=== PATIENT | male | born 1930 | race Hispanic/Latino ===

== ENCOUNTER 2016-07-21 12:35 | Emergency (ER) | payer MEDICARE ==
[2016-07-21 12:41] VITALS: BMI 19.8
[2016-07-21 12:46] VITALS: TEMP 98
--- NOTE | 2016-07-21 13:12 | RAD ---
HISTORY: cough COMPARISON: 09/08/2014 FINDINGS: LUNGS: No active pulmonary disease. PLEURA: No significant pleural effusion identified, no pneumothorax apparent. CARDIOVASCULAR: Normal. OSSEOUS STRUCTURES: No significant abnormalities. VISUALIZED UPPER ABDOMEN: Normal. OTHER FINDINGS: None. IMPRESSION: No active disease.
[2016-07-21 13:22] LABS: ADD MANUAL DIFF? NO
--- NOTE | 2016-07-21 13:25 | ED PDOC ---
Arrival/HPI - General Chief Complaint: Chest Pain Time Seen by Provider: 07/21/16 12:43 Historian: Patient - History of Present Illness Narrative History of Present Illness (Text): 07/21/16 13:15 A 86 year old male presents to the emergency department complaining of intermittent non-exertional left sided chest discomfort for the past 2 days. Patient currently denies any pain. He denies any relieving or exacerbating factors. Patient denies any fever, nausea, vomiting, diarrhea, abdominal pain, urinary symptoms, shortness of breath or any other complaints. PMD: Dr. Carpenter Time/Duration: Other (2 days) Symptom Course: Intermittent Quality: Other Context: Other Past Medical History - Provider Review Nursing Documentation Reviewed: Yes - Infectious Disease Hx of Infectious Diseases: None - Tetanus Immunization Tetanus Immunization: Unknown - Cardiac Hx Cardiac Disorders: Yes Hx Hypertension: Yes Hx Pacemaker: No Hx Peripheral Vascular Disease: Yes (right lower ext ulcer) - Pulmonary Hx Respiratory Disorders: No - Neurological Hx Neurological Disorder: No Hx Paralysis: No - HEENT Hx HEENT Disorder: Yes Hx Cataracts: Yes (BILATERAL SX,ALSO LASER SURGERY AND MONTLY EYE INJECTIONS) Hx Macular Degeneration: Yes - Renal Hx Renal Disorder: Yes Hx Kidney Stones: Yes - Endocrine/Metabolic Hx Endocrine Disorders: Yes Other/Comment: pt had thyroid sx not sure if he had total or partial, currently taking no meds - Hematological/Oncological Hx Blood Disorders: No Hx Blood Transfusions: No Hx Blood Transfusion Reaction: No - Integumentary Hx Dermatological Disorder: Yes - Musculoskeletal/Rheumatological Hx Musculoskeletal Disorders: No - Gastrointestinal Hx Gastrointestinal Disorders: Yes Hx Gastroesophageal Reflux: Yes - Genitourinary/Gynecological Hx Genitourinary Disorders: Yes Hx Prostate Problems: Yes (enlarged) - Psychiatric Hx Psychophysiologic Disorder: No Hx Emotional Abuse: No Hx Physical Abuse: No Hx Substance Use: No - Surgical History Hx Cardiac Catheterization: Yes - Anesthesia Hx Anesthesia Reactions: No Hx Malignant Hyperthermia: No - Suicidal Assessment Feels Threatened In Home Enviroment: No Family/Social History - Physician Review Nursing Documentation Reviewed: Yes Family/Social History: No Known Family HX Smoking Status: Never Smoked Hx Alcohol Use: No Hx Substance Use: No Hx Substance Use Treatment: No Allergies/Home Meds Allergies/Adverse Reactions: Allergies No Known Allergies Allergy (Verified 07/21/16 12:41) Home Medications: Home Meds Medication Instructions Recorded Confirmed Atorvastatin Calcium [Lipitor] 10 mg PO DAILY 09/08/14 07/21/16 Pantoprazole Sodium [Protonix] 40 mg PO DAILY 09/08/14 07/21/16 amLODIPine [Norvasc] 5 mg PO DAILY 09/08/14 07/21/16 Aspirin [Aspirin EC] 81 mg PO DAILY 09/09/14 07/21/16 Finasteride [Proscar] 5 mg PO DAILY 07/21/16 07/21/16 Lisinopril [Zestril] 20 mg PO DAILY 07/21/16 07/21/16 Lutein [Natural Lutein] 0 mg PO BID 07/21/16 07/21/16 Physical Exam - Physical Exam Narrative Physical Exam (Text): - Review of Systems Constitutional: Normal. absent: Fatigue, Weight Change, Fevers Eyes: Normal ENT: Normal Respiratory: Normal absent: SOB, Cough, Sputum Cardiovascular: (+) Left sided chest discomfort absent: Palpitations, Syncope Gastrointestinal: Normal absent: Abdominal pain, Diarrhea, Nausea, Vomiting Genitourinary: Normal. absent: Dysuria, Frequency, Hematuria Musculoskeletal: Normal. absent: Arthralgias, Back Pain, Neck Pain Skin: Normal Neurological: Normal absent: Focal Weakness Endocrine: Normal Hemo/Lymphatic: Normal Psychiatric: Normal - Physical exam Patient appears age appropriate, speaking full sentences without difficulty - Systems Exam Head: Present: Atraumatic, Normocephalic Pupils: Present: PERRL Extraocular Muscles: Present: EOMI Conjunctiva: Present: Normal Mouth: Present: Moist Mucous Membranes Neck: Present: Normal Range of Motion. No: MIDLINE TENDERNESS, Paraspinal Tenderness Respiratory/Chest: Present: Clear to Auscultation, Good Air Exchange. No: Respiratory Distress, Accessory Muscle Use, Tachypneic Cardiovascular: Present: Regular Rate and Rhythm, Normal S1, S2, Peripheral Pulses Present. No: Murmurs Abdomen: Present: Normal Bowel Sounds, No: Tenderness, Peritoneal Signs, Rebound, Guarding, Distention Back: Present: Normal Inspection. No: Midline Tenderness, Paraspinal Tenderness Upper Extremity: Present: Normal Inspection. No: Cyanosis, Edema Lower Extremity: Present: Normal Inspection. No: Edema Neurological: Present: GCS=15, Speech Normal, cranial nerves II through XII fully intact with no cerebellar abnormality, neuro-sensory fully intact. No focal neurological deficits. Skin: Present: Warm, Dry, Normal Color. No: Rashes Lymphatic: Present: OX3, NI, NC Psychiatric: Present: Alert, Oriented x 3, Normal Insight, Normal Concentration Vital Signs Reviewed: Yes Vital Signs Temp Pulse Resp BP Pulse Ox 07/21/16 13:28 57 L 14 142/80 98 07/21/16 12:45 98.0 F 63 18 170/63 H 100 Temperature: Afebrile Blood Pressure: Hypertensive Pulse: Regular Respiratory Rate: Normal Appearance: Positive for: Well-Appearing, Non-Toxic, Comfortable Pain Distress: None Mental Status: Positive for: Alert and Oriented X 3 Medical Decision Making ED Course and Treatment: 07/21/16 13:15 Impression: A 86 year old male with left sided chest discomfort. Patient currently denies pain. Physical exam unremarkable. Patient seen outpatient by Dr. Carpenter, and sent into the emergency department for labs and imaging. Plan: -- Chest xray -- EKG -- Labs -- Aspirin and Nitroglycerin -- Reassess and disposition Progress Notes: EKG shows NSR at 60 BPM with RBBB, no ST-segment elevations, with no changes from prior on 09/08/14. Interpreted by me. Report Date: 07/21/16 13:10 Procedure: Chest xray Dicated By: Solomon Dorado Impression: No active disease 07/21/16 15:08 On reevaluation, patient denies any chest pain or discomfort. States that he feels well and would like to be discharged home. Case discussed with Dr. 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 Pt states he understands to return to the ER right away for new or worsening symptoms or for inability to f/u with PMD or specialist as instructed. Patient states that he fully agrees with and understands discharge instructions. States that he agrees with the plan and disposition. Verbalized and repeated discharge instructions and plan. I have given the patient opportunity to ask any additional questions. - Lab Interpretations Lab Results: 07/21/16 12:50 07/21/16 12:50 Lab Results 07/21/16 12:50: WBC 8.7, RBC 3.48 L, Hgb 11.7 L, Hct 34.7 L, MCV 99.7, MCH 33.6 , MCHC 33.7, RDW 17.0 H, Plt Count 415, MPV 10.5, Gran % 69.9 H, Lymph % (Auto) 15.8 L, [place] % (Auto) 13.0 H, Eos % (Auto) 0.2 L, Baso % (Auto) 1.1, Gran # 6.08 , Lymph # 1.4, [place] # 1.1 H, Eos # 0.0, Baso # 0.10, PT 10.7, INR 0.99, APTT 27.7, Sodium 141, Potassium 3.9, Chloride 100, Carbon Dioxide 30, Anion Gap 15, BUN 16, Creatinine 0.6, Est GFR ( Amer) > 60, Est GFR (Non-Af Amer) > 60 , Random Glucose 105, Calcium 9.6, Total Bilirubin 1.3, AST 41, ALT 44, Alkaline Phosphatase 69, Lactate Dehydrogenase 470, Total Creatine Kinase 83, Troponin I < 0.01, Total Protein 7.8, Albumin 4.6, Globulin 3.2, Albumin/ Globulin Ratio 1.4 I have reviewed the lab results: Yes - RAD Interpretation Radiology Orders: 07/21/16 12:44 CHEST PORTABLE [RAD] Stat - Medication Orders Current Medication Orders: Discontinued Medications Aspirin (Aspirin Chewable) 324 mg PO STAT STA Stop: 07/21/16 12:44 Last Admin: 07/21/16 12:57 Dose: 324 MG Nitroglycerin (Nitrostat Sl Tab) 0.3 mg SL STAT STA Stop: 07/21/16 12:45 Last Admin: 07/21/16 13:07 Dose: 0.3 MG - Scribe Statement The provider has reviewed the documentation as recorded by the Yousif Fagan Provider Scribe Attestation: All medical record entries made by the Scribe were at my direction and personally dictated by me. I have reviewed the chart and agree that the record accurately reflects my personal performance of the history, physical exam, medical decision making, and the department course for this patient. I have also personally directed, reviewed, and agree with the discharge instructions and disposition. Disposition/Present on Arrival - Present on Arrival Any Indicators Present on Arrival: No History of DVT/PE: No History of Uncontrolled Diabetes: No Urinary Catheter: No History of Decub. Ulcer: No History Surgical Site Infection Following: None - Disposition Have Diagnosis and Disposition been Completed?: Yes Diagnosis: Chest pain Disposition: HOME/ ROUTINE Disposition Time: 15:10 Patient Plan: Discharge Condition: GOOD Discharge Instructions (ExitCare): Chest Pain (ED) Additional Instructions: PLEASE RETURN TO THE EMERGENCY DEPARTMENT FOR NEW OR WORSENING SYMPTOMS. RETURN RIGHT AWAY IF YOU CANNOT FOLLOW UP WITH YOUR PRIMARY CARE DOCTOR, CLINIC, OR SPECIALIST IN 1-2 DAYS. Referrals: Rober Carpenter DO [Primary Care Provider] - Follow up with primary Solomon Schmitt MD [Staff Provider] - Follow up with primary
[2016-07-21 13:28] LABS: BASO % 1.1 % (0.0-3.0); EOS % 0.2 % (1.5-5.0); GRAN # 6.08 (1.4-6.5); GRAN % 69.9 % (50.0-68.0); HEMATOCRIT 34.7 % (42.0-52.0); LYMPH # 1.4 (1.2-3.4); LYMPH % 15.8 % (22.0-35.0); MEAN CELL VOLUME 99.7 fL (80.0-105.0); MEAN CORPUSCULAR HEMOGLOBIN 33.6 pg (25.0-35.0); MEAN CORPUSCULAR HGB CONC 33.7 g/dl (31.0-37.0); MEAN PLATELET VOLUME 10.5 fl (7.0-11.0); MONO # 1.1 (0.1-0.6); PLATELET COUNT 415 10^3/uL (120.0-450.0); WHITE BLOOD COUNT 8.7 10^3/ul (4.5-11.0)
[2016-07-21 13:39] LABS: ALB/GLOB RATIO 1.4 (1.1-1.8); ALKALINE PHOSPHATASE 69 U/L (38-133); ALT/SGPT 44 U/L (7-56); AST/SGOT 41 U/L (15-59); BILIRUBIN,TOTAL 1.3 mg/dL (0.2-1.3); BLOOD UREA NITROGEN 16 mg/dL (7-21); CALCIUM 9.6 mg/dL (8.4-10.5); CARBON DIOXIDE 30 mmol/L (21-33); CHLORIDE 100 mmol/L (98-107); GFR AFRICAN-AMERICAN > 60; GLUCOSE,RANDOM 105 mg/dL (70-110); POTASSIUM 3.9 mmol/L (3.6-5.0); SODIUM 141 mmol/L (132-148); TOTAL PROTEIN 7.8 g/dL (5.8-8.3)
[2016-07-21 13:45] LABS: INR 0.99 (0.93-1.08); PARTIAL THROMBOPLASTIN TIME 27.7 Seconds (23.7-30.8)
[2016-07-21 13:51] LABS: TROPONIN I < 0.01 ng/mL
[2016-07-21 15:22] VITALS: BP 152/57; PULSE 55; RESP 16; O2SAT 100
--- NOTE | 2016-07-21 15:43 | CARD ---
APPROVED REPORT EKG Measurement Heart [id number] [id number] <Conclusion> Normal sinus rhythm Right bundle branch block
== END 2016-07-21 15:13 | disposition home or self-care (01) ==
LOC: ED 12:35
DX: R07.9 Chest pain, unspecified (principal)

== ENCOUNTER 2018-02-08 07:15 | Day surgery (SDC) | payer MEDICARE ==
[2018-02-08 07:44] LABS: BASO # 0.08 K/mm3 (0.0-2.0); BASO % 0.7 % (0.0-3.0); EOS # 0.1 (0.0-0.7); EOS % 1.2 % (1.5-5.0); GRAN # 7.36 (1.4-6.5); GRAN % 65.7 % (50.0-68.0); HEMOGLOBIN 10.9 g/dL (14.0-18.0); LYMPH # 1.6 (1.2-3.4); LYMPH % 13.8 % (22.0-35.0); MEAN CELL VOLUME 100.6 fl (80.0-105.0); MEAN CORPUSCULAR HEMOGLOBIN 33.6 pg (25.0-35.0); MEAN CORPUSCULAR HGB CONC 33.4 g/dl (31.0-37.0); MEAN PLATELET VOLUME 9.6 fl (7.0-11.0); MONO # 2.1 (0.1-0.6); MONO % 18.6 % (1.0-6.0); RBC 3.24 10^6/uL (3.5-6.1); RED CELL DISTRIBUTION WIDTH 17.5 % (11.5-14.5); WHITE BLOOD COUNT 11.2 10^3/uL (4.5-11.0)
[2018-02-08 07:56] LABS: INR 0.99; PARTIAL THROMBOPLASTIN TIME 28.3 Seconds (25.1-36.5); PROTHROMBIN TIME 11.4 SECONDS (9.4-12.5)
[2018-02-08 07:58] LABS: BLOOD UREA NITROGEN 17 mg/dL (7-21); CALCIUM 9.3 mg/dL (8.4-10.5); GFR NON-AFRICAN AMERICAN > 60; HDL CHOLESTEROL 84 mg/dL (29-60)
[2018-02-08 08:09] LABS: LDL CHOLESTEROL 80 mg/dL (0-129)
[2018-02-08 08:21] VITALS: RESP 18
[2018-02-08] MEDS ORDERED: Lidocaine 2% Inj (20ml) ONE (08:28)
[2018-02-08] MEDS ORDERED: Iodixanol 320 MG/ML 100 ML BOTTLE IV ONE (08:28)
[2018-02-08] MEDS ORDERED: Iodixanol 320 MG/ML 200 ML BOTTLE IV ONE (08:28)
[2018-02-08] MEDS ORDERED: Midazolam 2 MG/2 ML VIAL ONE (09:04)
[2018-02-08] MEDS ORDERED: Sodium Chloride 0.9% 1,000 ML IV SCH (09:30)
--- NOTE | 2018-02-08 09:55 | CARDCATH ---
PROCEDURE DATE: 02/08/2018 CARDIAC CATHETERIZATION HISTORY: The patient is an 87-year-old male, who presents with exertional shortness of breath and was found to have an abnormal stress test. A cardiac catheterization was recommended. PROCEDURE: Left heart catheterization with coronary arteriography and left ventriculogram. The right femoral artery was cannulated with a 6-[place] sheath. There were no complications. I performed moderate sedation, which included the presence of an independent trained observer that assisted in monitoring the patient's consciousness and physiologic status. After administration of Versed and fentanyl, my intra service time was 15 minutes. Findings on catheterization revealed a left ventricle that contracted normally. Estimated ejection fraction of 50-55%. His coronary anatomy revealed a codominant circulation. The left main artery was unremarkable. The LAD revealed diffuse atherosclerosis without critical lesions. The first diagonal vessel revealed a 70% ostial/proximal stenosis. The circumflex artery was a large vessel and revealed intimal irregularities without critical lesions. The RCA was selectively cannulized and found to be a codominant vessel. The RCA revealed a 40-50% stenosis in the midportion. Angio-Seal was used to close the femoral artery site. The patient tolerated the procedure well. In summary, the diagonal vessel revealed a 70-80% proximal/ostial stenosis of the first diagonal vessel. There is a 40-50% stenosis in the mid RCA. Given these findings, the patient's treatment will be continued medical therapy. His coronary lesions cannot explain his exertional dyspnea. We will continue him on aspirin and a cardiac risk reduction program. Solomon Schmitt MD
[2018-02-08 10:27] VITALS: TEMP 97.1
[2018-02-08 10:47] VITALS: O2SAT 96
[2018-02-08 12:27] VITALS: PULSE 51
[2018-02-08 12:45] VITALS: BP 134/53
--- NOTE | 2018-02-08 19:13 | CARD ---
APPROVED REPORT Date of service: 02/08/2018 EKG Measurement Heart [id number] <Conclusion> Sinus rhythm with 1st degree AV block Right bundle branch block Abnormal ECG
== END 2018-02-08 16:00 | disposition home or self-care (01) ==
LOC: CATH 07:15
PROVIDERS: ATTEND Internal Medicine Cardiovascular Disease
DX: I25.10 Atherosclerotic heart disease of native coronary artery without angina pectoris (principal); I10 Essential (primary) hypertension
CPT/HCPCS: 36415; 80048; 80061; 85025; 85610; 85730; 86850; 86900; 93005; 93458; 99152; C1760; C1769; C2629; J1644; J2250; J3010; J7030; J7040; Q9966

== ENCOUNTER → 2018-06-22 | Outpatient (CLI) | payer MEDICARE | LOC: RAD 12:49 ==